=== PATIENT | male | born 1945 | race Asian ===

== ENCOUNTER 2017-07-27 12:15 | Inpatient (IN) | payer OTHER ==
[2017-07-27] MEDS: SODIUM CHLORIDE 0.9% 1L BAG IV* (12:37)
[2017-07-27] MEDS: PIPER-TAZO 3.375 GM IV (PMX) 50 ML IVPB (12:37)
[2017-07-27 13:13] LABS: ADD MAN DIFF? NO
[2017-07-27 13:15] LABS: ABNORMAL IP MESSAGE 1; BASOPHIL # 0.1 10^3/ul (0.0-0.1); BASOPHILS % 0.5 % (0.0-2.0); EOSINOPHILS # 0.4 10^3/ul (0.0-0.5); EOSINOPHILS % 1.8 % (0.0-7.0); HEMATOCRIT 33.9 % (42.0-52.0); LYMPHOCYTES # 2.1 10^3/ul (0.8-2.9); LYMPHOCYTES % 10.4 % (15.0-51.0); MEAN CORPUSCULAR HEMOGLOBIN 29.4 pg (29.0-33.0); MEAN CORPUSCULAR HGB CONC 32.4 g/dl (32.0-37.0); MEAN CORPUSCULAR VOLUME 90.6 fl (82.0-101.0); MEAN PLATELET VOLUME 11.4 fl (7.4-10.4); MONOCYTE # 1.5 10^3/ul (0.3-0.9); MONOCYTES % 7.4 % (0.0-11.0); NEUTROPHIL # 16.1 10^3/ul (1.6-7.5); NEUTROPHILS % 78.9 % (39.0-77.0); PLATELET COUNT 424 10^3/UL (140-415); POSITIVE DIFF @See below; RED BLOOD COUNT 3.74 10^6/ul (4.70-6.10); RED CELL DISTRIBUTION WIDTH 17.2 % (11.5-14.5)
[2017-07-27 13:15] LABS: WHITE BLOOD COUNT 20.5 10^3/ul (4.8-10.8)
[2017-07-27 13:49] LABS: INR 0.94; PROTIME 12.7 Sec (11.9-14.9)
[2017-07-27 13:50] LABS: PARTIAL THROMBOPLASTIN TIME 40.5 Sec (25.0-35.0)
[2017-07-27 14:10] LABS: LACTIC ACID 1.2 mmol/L (0.5-2.0)
[2017-07-27 14:11] LABS: ALANINE AMINOTRANSFERASE 26 IU/L (13-69); ALBUMIN 3.6 g/dl (3.3-4.9); ALKALINE PHOSPHATASE 264 IU/L (42-121); ANION GAP 18 (8-16); ASPARTATE AMINO TRANSFERASE 27 IU/L (15-46); BLOOD UREA NITROGEN 61 mg/dl (7-20); CALCIUM 10.4 mg/dl (8.4-10.2); CARBON DIOXIDE 24 mmol/L (21-31); CHLORIDE 94 mmol/L (97-110); CREATININE 4.07 mg/dl (0.61-1.24); GLUCOSE 130 mg/dl (70-220); POTASSIUM 3.9 mmol/L (3.5-5.1); SODIUM 132 mmol/L (135-144); TOTAL PROTEIN 8.7 g/dl (6.1-8.1)
[2017-07-27 14:23] LABS: TROPONIN-I 0.036 ng/ml (0.00-0.12)
[2017-07-27 15:28] LABS: ADD UMIC YES; UR ASCORBIC ACID 40 mg/dL (NEGATIVE); UR BACTERIA MANY /HPF (NONE SEEN); UR BILIRUBIN (Dip) NEGATIVE (NEGATIVE); UR BLOOD (Dip) 1+ mg/dL (NEGATIVE); UR CLARITY CLOUDY (CLEAR); UR COLOR AMBER (YELLOW); UR GLUCOSE (Dip) NEGATIVE (NEGATIVE); UR KETONES (Dip) NEGATIVE (NEGATIVE); UR LEUKOCYTE ESTERASE (Dip) 3+ Leu/ul (NEGATIVE); UR MUCUS FEW /HPF (NONE SEEN); UR NITRITE (Dip) NEGATIVE (NEGATIVE); UR RBC 21 /HPF (0-5); UR SPECIFIC GRAVITY (Dip) 1.013 (1.003-1.030); UR TOTAL PROTEIN (Dip) 3+ mg/dl (NEGATIVE); UR UROBILINOGEN (Dip) NEGATIVE (NEGATIVE); UR WBC > 182 /HPF (0-5)
[2017-07-27] MEDS: VANCOMYCIN 1 GM (PMX) 250 ML IVPB (15:45)
[2017-07-27 16:11] LABS: LACTIC ACID 0.7 mmol/L (0.5-2.0)
[2017-07-27] MEDS ORDERED: ACETAMINOPHEN 650MG/20.3ML CUP (17:01)
[2017-07-27] MEDS ORDERED: ONDANSETRON 4 MG INJ IV ×2 (17:30→20:00)
[2017-07-27] MEDS ORDERED: IBUPROFEN LIQUID (PED) 20 MG/ML CUP (18:06)
[2017-07-27 18:20] LABS: LACTIC ACID 1.5 mmol/L (0.5-2.0)
[2017-07-27] MEDS: ACETAMINOPHEN 325 MG TAB PO (19:32)
[2017-07-27] MEDS ORDERED: VANCOMYCIN IV PER PHARMACY XX (20:00)
[2017-07-27] MEDS ORDERED: NACL 0.9% 3 ML SYG IV (20:00)
[2017-07-27] MEDS ORDERED: GLUCOSE GEL 15 GRAM TUBE BUCCAL (20:30)
[2017-07-27] MEDS: ACETAMINOPHEN 650 MG SUPP PR (20:30)
[2017-07-27] MEDS ORDERED: GLUCAGON 1 MG INJ IM (20:30)
[2017-07-27] MEDS ORDERED: GLUCOSE GEL 15 GRAM TUBE PO ×2 (20:30)
[2017-07-27] MEDS ORDERED: DEXTROSE 50% 50 ML SYRINGE IV (20:30)
[2017-07-27] MEDS: CEFEPIME 1GM/50 ML (PMX) 50 ML IVPB (20:33)
[2017-07-27] MEDS: D5W-0.45 NACL + KCL 20 MEQ 1,000 ML IV (20:33)
[2017-07-27] MEDS ORDERED: FAMOTIDINE 20 MG TAB PO (21:00)
[2017-07-27] MEDS ORDERED: CEFEPIME 1GM/50 ML (PMX) 50 ML IVPB (21:00)
[2017-07-27] MEDS ORDERED: INSULIN REGULAR, HUMAN 100 UNIT/1 ML 3ML VIAL (21:24)
[2017-07-27] MEDS: Insulin NOVOLOG SS MILD Algorithm (NPO/TPN/ENTERAL FEEDS) SC (21:47)
[2017-07-27] MEDS: INSULIN GLARGINE [LANtus] 3 ML PEN SC (21:48)
[2017-07-27] MEDS: morphine 2 MG INJ IV (23:30)
[2017-07-27] MEDS: TAMSULOSIN (SR) 0.4 MG CAP PO (23:34)
[2017-07-27] MEDS: ZINC SULFATE 220 MG CAP GTB (23:34)
[2017-07-28] MEDS ORDERED: INSULIN ASPART [NOVOLOG] 3 ML PEN SC
[2017-07-28] MEDS: FAMOTIDINE 20 MG TAB PO ×2 (04:53→20:37)
[2017-07-28] MEDS: morphine 2 MG INJ IV (04:53)
[2017-07-28] MEDS: Insulin NOVOLOG SS MILD Algorithm (NPO/TPN/ENTERAL FEEDS) SC ×3 (05:49→19:34)
[2017-07-28 06:15] LABS: ADD MAN DIFF? NO
[2017-07-28 06:25] LABS: WHITE BLOOD COUNT 24.9 10^3/ul (4.8-10.8)
[2017-07-28 06:25] LABS: ABNORMAL IP MESSAGE 1; BASOPHIL # 0.2 10^3/ul (0.0-0.1); BASOPHILS % 0.6 % (0.0-2.0); EOSINOPHILS # 0.8 10^3/ul (0.0-0.5); EOSINOPHILS % 3.1 % (0.0-7.0); HEMATOCRIT 32.3 % (42.0-52.0); HEMOGLOBIN 10.5 g/dl (14.0-18.0); LYMPHOCYTES # 1.1 10^3/ul (0.8-2.9); LYMPHOCYTES % 4.4 % (15.0-51.0); MEAN CORPUSCULAR HEMOGLOBIN 29.6 pg (29.0-33.0); MEAN CORPUSCULAR HGB CONC 32.5 g/dl (32.0-37.0); MEAN PLATELET VOLUME 10.6 fl (7.4-10.4); MONOCYTE # 1.4 10^3/ul (0.3-0.9); MONOCYTES % 5.7 % (0.0-11.0); NEUTROPHIL # 21.2 10^3/ul (1.6-7.5); NEUTROPHILS % 85.2 % (39.0-77.0); PLATELET COUNT 436 10^3/UL (140-415); POSITIVE DIFF @See below; RED BLOOD COUNT 3.55 10^6/ul (4.70-6.10); RED CELL DISTRIBUTION WIDTH 17.2 % (11.5-14.5)
[2017-07-28 07:12] LABS: ALANINE AMINOTRANSFERASE 25 IU/L (13-69); ALBUMIN 3.1 g/dl (3.3-4.9); ALBUMIN/GLOBULIN RATIO 0.67; ALKALINE PHOSPHATASE 174 IU/L (42-121); ANION GAP 17 (8-16); ASPARTATE AMINO TRANSFERASE 25 IU/L (15-46); BLOOD UREA NITROGEN 63 mg/dl (7-20); CALCIUM 9.2 mg/dl (8.4-10.2); CARBON DIOXIDE 19 mmol/L (21-31); CHLORIDE 103 mmol/L (97-110); CREATININE 4.45 mg/dl (0.61-1.24); GLUCOSE 111 mg/dl (70-220); POTASSIUM 4.4 mmol/L (3.5-5.1); SODIUM 135 mmol/L (135-144); TOTAL PROTEIN 7.7 g/dl (6.1-8.1)
[2017-07-28 07:33] LABS: THYROID STIMULATING HORMONE 0.303 MIU/L (0.465-4.680)
[2017-07-28 08:02] LABS: HEMOGLOBIN A1C 5.7 % (0-5.9)
[2017-07-28] MEDS ORDERED: TAMSULOSIN (SR) 0.4 MG CAP PO (09:00)
[2017-07-28] MEDS: D5W-0.45 NACL + KCL 20 MEQ 1,000 ML IV (13:44)
[2017-07-28 19:14] LABS: AADO2 Arterial 44.4 mmHg (7.0-24.0); Allen Test ACCEPTAB; Arterial Base Excess -4.3 mmol/L (-3.0-3); Arterial Blood Gas Oxygen Sat 94.7 mmHG (95.0-98.0); Arterial COHb 0.1 % (0.0-3.0); Arterial Fraction of Oxyhgb 94.4 % (93.0-99.0); Arterial HCO3 19.3 mmol/L (22.0-26.0); Arterial MetHb 0.2 % (0.0-1.5); Arterial Total Hemglobin 11.3 g/dl (12.0-18.0); MODE ROOM AIR; Site Right Radial
[2017-07-28] MEDS: ACETAMINOPHEN 650 MG SUPP PR (20:37)
[2017-07-28] MEDS: CEFEPIME 1GM/50 ML (PMX) 50 ML IVPB (20:37)
[2017-07-28] MEDS: TAMSULOSIN (SR) 0.4 MG CAP PO (20:37)
[2017-07-29] MEDS: ALBUTEROL/IPRATROPIUM (NEB) 3 ML AMP HHN ×4 (01:09→20:43)
[2017-07-29] MEDS: Insulin NOVOLOG SS MILD Algorithm (NPO/TPN/ENTERAL FEEDS) SC ×4 (01:21→18:08)
[2017-07-29] MEDS: INSULIN GLARGINE [LANtus] 3 ML PEN SC (01:29)
[2017-07-29] MEDS: D5W-0.45 NACL + KCL 20 MEQ 1,000 ML IV (04:53)
[2017-07-29 05:38] LABS: ADD MAN DIFF? NO
[2017-07-29 05:43] LABS: BASOPHIL # 0.1 10^3/ul (0.0-0.1); BASOPHILS % 0.7 % (0.0-2.0); EOSINOPHILS # 0.7 10^3/ul (0.0-0.5); EOSINOPHILS % 3.4 % (0.0-7.0); HEMATOCRIT 28.9 % (42.0-52.0); HEMOGLOBIN 9.8 g/dl (14.0-18.0); LYMPHOCYTES # 1.4 10^3/ul (0.8-2.9); LYMPHOCYTES % 7.5 % (15.0-51.0); MEAN CORPUSCULAR HEMOGLOBIN 30.1 pg (29.0-33.0); MEAN CORPUSCULAR HGB CONC 33.9 g/dl (32.0-37.0); MEAN CORPUSCULAR VOLUME 88.7 fl (82.0-101.0); MONOCYTE # 0.9 10^3/ul (0.3-0.9); MONOCYTES % 4.9 % (0.0-11.0); NEUTROPHIL # 15.7 10^3/ul (1.6-7.5); NEUTROPHILS % 82.8 % (39.0-77.0); PLATELET COUNT 461 10^3/UL (140-415); RED BLOOD COUNT 3.26 10^6/ul (4.70-6.10); RED CELL DISTRIBUTION WIDTH 17.2 % (11.5-14.5)
[2017-07-29 06:12] LABS: VANCOMYCIN,RANDOM 12.9 ug/ml
[2017-07-29 06:20] LABS: ANION GAP 18 (8-16); BLOOD UREA NITROGEN 73 mg/dl (7-20); CALCIUM 8.6 mg/dl (8.4-10.2); CARBON DIOXIDE 18 mmol/L (21-31); CHLORIDE 102 mmol/L (97-110); CREATININE 5.08 mg/dl (0.61-1.24); GLUCOSE 207 mg/dl (70-220); MAGNESIUM 2.2 mg/dl (1.7-2.5); POTASSIUM 4.5 mmol/L (3.5-5.1); SODIUM 133 mmol/L (135-144)
[2017-07-29] MEDS: ZINC SULFATE 220 MG CAP GTB (08:52)
[2017-07-29] MEDS: VANCOMYCIN 750 MG in DEXTROSE 5% 150 ML IVPB (14:10)
[2017-07-29] MEDS: TAMSULOSIN (SR) 0.4 MG CAP PO (20:50)
[2017-07-29] MEDS: CEFEPIME 1GM/50 ML (PMX) 50 ML IVPB (20:51)
[2017-07-29] MEDS: FAMOTIDINE 20 MG TAB PO (20:51)
[2017-07-30] MEDS: INSULIN GLARGINE [LANtus] 3 ML PEN SC ×2 (00:52→20:46)
[2017-07-30] MEDS: ALBUTEROL/IPRATROPIUM (NEB) 3 ML AMP HHN ×4 (02:29→20:14)
[2017-07-30] MEDS: Insulin NOVOLOG SS MILD Algorithm (NPO/TPN/ENTERAL FEEDS) SC ×4 (05:57→17:37)
[2017-07-30 06:37] LABS: ADD MAN DIFF? NO
[2017-07-30 06:44] LABS: BASOPHIL # 0.1 10^3/ul (0.0-0.1); BASOPHILS % 0.6 % (0.0-2.0); EOSINOPHILS # 0.5 10^3/ul (0.0-0.5); EOSINOPHILS % 3.1 % (0.0-7.0); HEMATOCRIT 29.7 % (42.0-52.0); LYMPHOCYTES # 1.5 10^3/ul (0.8-2.9); LYMPHOCYTES % 10.6 % (15.0-51.0); MEAN CORPUSCULAR HEMOGLOBIN 29.9 pg (29.0-33.0); MEAN CORPUSCULAR HGB CONC 33.7 g/dl (32.0-37.0); MEAN CORPUSCULAR VOLUME 88.9 fl (82.0-101.0); MEAN PLATELET VOLUME 10.8 fl (7.4-10.4); MONOCYTES % 6.8 % (0.0-11.0); NEUTROPHIL # 11.3 10^3/ul (1.6-7.5); NEUTROPHILS % 78.2 % (39.0-77.0); PLATELET COUNT 397 10^3/UL (140-415); RED BLOOD COUNT 3.34 10^6/ul (4.70-6.10); RED CELL DISTRIBUTION WIDTH 17.5 % (11.5-14.5)
[2017-07-30 06:44] LABS: WHITE BLOOD COUNT 14.5 10^3/ul (4.8-10.8)
[2017-07-30 07:10] LABS: ALANINE AMINOTRANSFERASE 25 IU/L (13-69); ALBUMIN 2.9 g/dl (3.3-4.9); ALBUMIN/GLOBULIN RATIO 0.67; ALKALINE PHOSPHATASE 257 IU/L (42-121); ANION GAP 13 (8-16); ASPARTATE AMINO TRANSFERASE 29 IU/L (15-46); BLOOD UREA NITROGEN 50 mg/dl (7-20); CALCIUM 8.4 mg/dl (8.4-10.2); CARBON DIOXIDE 25 mmol/L (21-31); CHLORIDE 98 mmol/L (97-110); CREATININE 3.53 mg/dl (0.61-1.24); GLUCOSE 203 mg/dl (70-220); SODIUM 133 mmol/L (135-144); TOTAL PROTEIN 7.2 g/dl (6.1-8.1)
[2017-07-30] MEDS: ZINC SULFATE 220 MG CAP GTB (09:29)
[2017-07-30] MEDS: BALSAM PERU/CASTOR OIL 60 GM TUBE TOP ×2 (09:30→14:54)
[2017-07-30] MEDS ORDERED: POTASSIUM CHLORIDE 30 MEQ in DEXTROSE 5% 250 ML IVPB (15:30)
[2017-07-30] MEDS: POTASSIUM CHLORIDE 50 ML IVPB ×3 (16:01→20:37)
[2017-07-30] MEDS ORDERED: HEPARIN 1000 UNITS/ML 10 ML INJ (17:42)
[2017-07-30] MEDS: CEFEPIME 1GM/50 ML (PMX) 50 ML IVPB (20:36)
[2017-07-30] MEDS: FAMOTIDINE 20 MG TAB PO (20:38)
[2017-07-30] MEDS: TAMSULOSIN (SR) 0.4 MG CAP PO (20:38)
[2017-07-31] MEDS: Insulin NOVOLOG SS MILD Algorithm (NPO/TPN/ENTERAL FEEDS) SC ×5 (00:59→23:41)
[2017-07-31] MEDS: ALBUTEROL/IPRATROPIUM (NEB) 3 ML AMP HHN ×4 (01:34→19:21)
[2017-07-31 07:21] LABS: ADD MAN DIFF? NO
[2017-07-31 07:24] LABS: BASOPHIL # 0.1 10^3/ul (0.0-0.1); BASOPHILS % 0.6 % (0.0-2.0); EOSINOPHILS % 6.1 % (0.0-7.0); HEMATOCRIT 32.5 % (42.0-52.0); HEMOGLOBIN 10.7 g/dl (14.0-18.0); LYMPHOCYTES # 1.6 10^3/ul (0.8-2.9); LYMPHOCYTES % 10.2 % (15.0-51.0); MEAN CORPUSCULAR HEMOGLOBIN 29.6 pg (29.0-33.0); MEAN CORPUSCULAR HGB CONC 32.9 g/dl (32.0-37.0); MEAN PLATELET VOLUME 11.2 fl (7.4-10.4); MONOCYTE # 0.9 10^3/ul (0.3-0.9); MONOCYTES % 5.9 % (0.0-11.0); NEUTROPHIL # 11.9 10^3/ul (1.6-7.5); NEUTROPHILS % 76.4 % (39.0-77.0); PLATELET COUNT 393 10^3/UL (140-415); RED BLOOD COUNT 3.61 10^6/ul (4.70-6.10); RED CELL DISTRIBUTION WIDTH 17.7 % (11.5-14.5)
[2017-07-31 07:24] LABS: WHITE BLOOD COUNT 15.5 10^3/ul (4.8-10.8)
[2017-07-31 07:39] LABS: ANION GAP 16 (8-16); BLOOD UREA NITROGEN 73 mg/dl (7-20); CARBON DIOXIDE 23 mmol/L (21-31); CHLORIDE 100 mmol/L (97-110); GLUCOSE 158 mg/dl (70-220); POTASSIUM 3.8 mmol/L (3.5-5.1); SODIUM 135 mmol/L (135-144)
[2017-07-31] MEDS: ZINC SULFATE 220 MG CAP GTB (08:21)
[2017-07-31] MEDS: BALSAM PERU/CASTOR OIL 60 GM TUBE TOP (08:22)
[2017-07-31] MEDS: FAMOTIDINE 20 MG TAB PO (21:28)
[2017-07-31] MEDS: TAMSULOSIN (SR) 0.4 MG CAP PO (21:28)
[2017-07-31] MEDS: CEFEPIME 1GM/50 ML (PMX) 50 ML IVPB (21:29)
[2017-07-31] MEDS: INSULIN GLARGINE [LANtus] 3 ML PEN SC (21:37)
[2017-08-01] MEDS: ALBUTEROL/IPRATROPIUM (NEB) 3 ML AMP HHN ×4 (01:13→22:06)
[2017-08-01] MEDS: morphine 2 MG INJ IV (02:39)
[2017-08-01] MEDS: Insulin NOVOLOG SS MILD Algorithm (NPO/TPN/ENTERAL FEEDS) SC ×3 (06:00→18:02)
[2017-08-01 07:25] LABS: ADD MAN DIFF? NO
[2017-08-01 07:31] LABS: BASOPHIL # 0.1 10^3/ul (0.0-0.1); BASOPHILS % 0.6 % (0.0-2.0); EOSINOPHILS % 6.3 % (0.0-7.0); HEMOGLOBIN 10.5 g/dl (14.0-18.0); LYMPHOCYTES # 1.8 10^3/ul (0.8-2.9); LYMPHOCYTES % 11.6 % (15.0-51.0); MEAN CORPUSCULAR HEMOGLOBIN 29.5 pg (29.0-33.0); MEAN CORPUSCULAR HGB CONC 32.8 g/dl (32.0-37.0); MEAN CORPUSCULAR VOLUME 89.9 fl (82.0-101.0); MEAN PLATELET VOLUME 11.3 fl (7.4-10.4); MONOCYTES % 6.1 % (0.0-11.0); NEUTROPHIL # 11.7 10^3/ul (1.6-7.5); NEUTROPHILS % 74.8 % (39.0-77.0); PLATELET COUNT 424 10^3/UL (140-415); RED BLOOD COUNT 3.56 10^6/ul (4.70-6.10); RED CELL DISTRIBUTION WIDTH 17.6 % (11.5-14.5)
[2017-08-01 07:31] LABS: WHITE BLOOD COUNT 15.7 10^3/ul (4.8-10.8)
[2017-08-01 07:59] LABS: ANION GAP 12 (8-16); BLOOD UREA NITROGEN 45 mg/dl (7-20); CALCIUM 8.5 mg/dl (8.4-10.2); CARBON DIOXIDE 31 mmol/L (21-31); CHLORIDE 99 mmol/L (97-110); CREATININE 3.17 mg/dl (0.61-1.24); GLUCOSE 131 mg/dl (70-220); POTASSIUM 3.5 mmol/L (3.5-5.1); SODIUM 138 mmol/L (135-144)
[2017-08-01] MEDS: ZINC SULFATE 220 MG CAP GTB (09:05)
[2017-08-01] MEDS: BALSAM PERU/CASTOR OIL 60 GM TUBE TOP (09:06)
[2017-08-01] MEDS: FAMOTIDINE 20 MG TAB PO (20:38)
[2017-08-01] MEDS: TAMSULOSIN (SR) 0.4 MG CAP PO (20:39)
[2017-08-01] MEDS: CEFEPIME 1GM/50 ML (PMX) 50 ML IVPB (21:34)
[2017-08-01] MEDS: DEXTROSE 50% 50 ML SYRINGE IV (21:41)
[2017-08-02] MEDS: Insulin NOVOLOG SS MILD Algorithm (NPO/TPN/ENTERAL FEEDS) SC ×4 (00:35→18:03)
[2017-08-02] MEDS: ALBUTEROL/IPRATROPIUM (NEB) 3 ML AMP HHN ×4 (02:23→20:37)
[2017-08-02 06:12] LABS: ADD MAN DIFF? NO
[2017-08-02 06:19] LABS: WHITE BLOOD COUNT 15.2 10^3/ul (4.8-10.8)
[2017-08-02 06:19] LABS: BASOPHIL # 0.1 10^3/ul (0.0-0.1); BASOPHILS % 0.8 % (0.0-2.0); EOSINOPHILS # 1.1 10^3/ul (0.0-0.5); HEMATOCRIT 31.2 % (42.0-52.0); HEMOGLOBIN 10.3 g/dl (14.0-18.0); LYMPHOCYTES # 1.9 10^3/ul (0.8-2.9); LYMPHOCYTES % 12.5 % (15.0-51.0); MEAN CORPUSCULAR HEMOGLOBIN 29.9 pg (29.0-33.0); MEAN CORPUSCULAR VOLUME 90.4 fl (82.0-101.0); MEAN PLATELET VOLUME 11.7 fl (7.4-10.4); MONOCYTES % 6.6 % (0.0-11.0); NEUTROPHILS % 72.2 % (39.0-77.0); PLATELET COUNT 435 10^3/UL (140-415); RED BLOOD COUNT 3.45 10^6/ul (4.70-6.10); RED CELL DISTRIBUTION WIDTH 17.6 % (11.5-14.5)
[2017-08-02 07:02] LABS: ANION GAP 16 (8-16); BLOOD UREA NITROGEN 61 mg/dl (7-20); CALCIUM 7.8 mg/dl (8.4-10.2); CARBON DIOXIDE 27 mmol/L (21-31); CHLORIDE 99 mmol/L (97-110); CREATININE 3.79 mg/dl (0.61-1.24); GLUCOSE 175 mg/dl (70-220); POTASSIUM 3.6 mmol/L (3.5-5.1); SODIUM 138 mmol/L (135-144)
[2017-08-02] MEDS: ZINC SULFATE 220 MG CAP GTB (08:51)
[2017-08-02] MEDS: BALSAM PERU/CASTOR OIL 60 GM TUBE TOP (08:51)
[2017-08-02] MEDS: INSULIN GLARGINE [LANtus] 3 ML PEN SC (20:46)
[2017-08-02] MEDS: FAMOTIDINE 20 MG TAB PO (20:47)
[2017-08-02] MEDS: CEFEPIME 1GM/50 ML (PMX) 50 ML IVPB (20:48)
[2017-08-02] MEDS: TAMSULOSIN (SR) 0.4 MG CAP PO (20:49)
[2017-08-03] MEDS: Insulin NOVOLOG SS MILD Algorithm (NPO/TPN/ENTERAL FEEDS) SC ×4 (00:21→18:06)
[2017-08-03] MEDS: morphine 2 MG INJ IV ×2 (00:29→20:45)
[2017-08-03] MEDS: ALBUTEROL/IPRATROPIUM (NEB) 3 ML AMP HHN ×4 (01:43→20:02)
[2017-08-03 05:26] LABS: ADD MAN DIFF? NO
[2017-08-03 05:29] LABS: WHITE BLOOD COUNT 15.1 10^3/ul (4.8-10.8)
[2017-08-03 05:29] LABS: BASOPHIL # 0.1 10^3/ul (0.0-0.1); BASOPHILS % 0.9 % (0.0-2.0); EOSINOPHILS # 0.9 10^3/ul (0.0-0.5); EOSINOPHILS % 5.9 % (0.0-7.0); HEMATOCRIT 32.4 % (42.0-52.0); HEMOGLOBIN 10.6 g/dl (14.0-18.0); LYMPHOCYTES # 1.8 10^3/ul (0.8-2.9); LYMPHOCYTES % 11.7 % (15.0-51.0); MEAN CORPUSCULAR HEMOGLOBIN 29.9 pg (29.0-33.0); MEAN CORPUSCULAR HGB CONC 32.7 g/dl (32.0-37.0); MEAN CORPUSCULAR VOLUME 91.3 fl (82.0-101.0); MEAN PLATELET VOLUME 11.4 fl (7.4-10.4); MONOCYTES % 6.5 % (0.0-11.0); NEUTROPHIL # 11.2 10^3/ul (1.6-7.5); NEUTROPHILS % 74.1 % (39.0-77.0); PLATELET COUNT 453 10^3/UL (140-415); RED BLOOD COUNT 3.55 10^6/ul (4.70-6.10); RED CELL DISTRIBUTION WIDTH 17.6 % (11.5-14.5)
[2017-08-03 06:18] LABS: HEPATITIS B SURFACE ANTIGEN NEGATIVE (NEGATIVE)
[2017-08-03 06:34] LABS: HEPATITIS B SURFACE ANTIBODY NEGATIVE (NEGATIVE)
[2017-08-03 06:36] LABS: HEPATITIS B CORE ANTIBODY NEGATIVE (NEGATIVE)
[2017-08-03 06:43] LABS: ANION GAP 14 (8-16); BLOOD UREA NITROGEN 34 mg/dl (7-20); CALCIUM 8.1 mg/dl (8.4-10.2); CARBON DIOXIDE 27 mmol/L (21-31); CHLORIDE 101 mmol/L (97-110); CREATININE 2.47 mg/dl (0.61-1.24); GLUCOSE 155 mg/dl (70-220); POTASSIUM 3.7 mmol/L (3.5-5.1); SODIUM 138 mmol/L (135-144)
[2017-08-03] MEDS: ZINC SULFATE 220 MG CAP GTB (09:19)
[2017-08-03] MEDS: BALSAM PERU/CASTOR OIL 60 GM TUBE TOP (09:19)
[2017-08-03] MEDS: INSULIN GLARGINE [LANtus] 3 ML PEN SC (20:37)
[2017-08-03] MEDS: CEFEPIME 1GM/50 ML (PMX) 50 ML IVPB (20:39)
[2017-08-03] MEDS: FAMOTIDINE 20 MG TAB PO (20:40)
[2017-08-03] MEDS: TAMSULOSIN (SR) 0.4 MG CAP PO (20:41)
[2017-08-04] MEDS: ALBUTEROL/IPRATROPIUM (NEB) 3 ML AMP HHN ×4 (01:27→19:25)
[2017-08-04] MEDS: Insulin NOVOLOG SS MILD Algorithm (NPO/TPN/ENTERAL FEEDS) SC ×5 (06:00→23:52)
[2017-08-04 06:14] LABS: ADD MAN DIFF? NO
[2017-08-04 06:23] LABS: WHITE BLOOD COUNT 15.6 10^3/ul (4.8-10.8)
[2017-08-04 06:23] LABS: BASOPHIL # 0.1 10^3/ul (0.0-0.1); BASOPHILS % 0.8 % (0.0-2.0); EOSINOPHILS # 1.2 10^3/ul (0.0-0.5); EOSINOPHILS % 7.4 % (0.0-7.0); HEMATOCRIT 33.4 % (42.0-52.0); HEMOGLOBIN 10.7 g/dl (14.0-18.0); LYMPHOCYTES # 2.2 10^3/ul (0.8-2.9); LYMPHOCYTES % 14.3 % (15.0-51.0); MEAN CORPUSCULAR HEMOGLOBIN 29.6 pg (29.0-33.0); MEAN CORPUSCULAR VOLUME 92.3 fl (82.0-101.0); MEAN PLATELET VOLUME 11.5 fl (7.4-10.4); MONOCYTE # 1.3 10^3/ul (0.3-0.9); MONOCYTES % 8.3 % (0.0-11.0); NEUTROPHIL # 10.6 10^3/ul (1.6-7.5); NEUTROPHILS % 68.1 % (39.0-77.0); PLATELET COUNT 488 10^3/UL (140-415); RED BLOOD COUNT 3.62 10^6/ul (4.70-6.10); RED CELL DISTRIBUTION WIDTH 17.5 % (11.5-14.5)
[2017-08-04 06:56] LABS: ANION GAP 15 (8-16); BLOOD UREA NITROGEN 59 mg/dl (7-20); CALCIUM 8.5 mg/dl (8.4-10.2); CARBON DIOXIDE 28 mmol/L (21-31); CHLORIDE 99 mmol/L (97-110); CREATININE 3.83 mg/dl (0.61-1.24); GLUCOSE 94 mg/dl (70-220); POTASSIUM 3.7 mmol/L (3.5-5.1); SODIUM 138 mmol/L (135-144)
[2017-08-04] MEDS: BALSAM PERU/CASTOR OIL 60 GM TUBE TOP (07:57)
[2017-08-04] MEDS: ZINC SULFATE 220 MG CAP GTB (07:57)
[2017-08-04] MEDS: ALBUMIN HUMAN 25% 100 ML IV (11:54)
[2017-08-04] MEDS: HEPARIN 1000 UNITS/ML 10 ML INJ CATHETER (12:43)
[2017-08-04] MEDS ORDERED: LIDOCAINE 1% (MDV) 20 ML INJ (16:14)
[2017-08-04] MEDS ORDERED: SOD CHLORIDE 0.9% 1,000 ML IV (18:57)
[2017-08-04] MEDS: FAMOTIDINE 20 MG TAB PO (20:32)
[2017-08-04] MEDS: CEFEPIME 1GM/50 ML (PMX) 50 ML IVPB (20:32)
[2017-08-04] MEDS: TAMSULOSIN (SR) 0.4 MG CAP PO (20:32)
[2017-08-04] MEDS: INSULIN GLARGINE [LANtus] 3 ML PEN SC (20:46)
[2017-08-05] MEDS: ALBUTEROL/IPRATROPIUM (NEB) 3 ML AMP HHN ×4 (01:02→20:12)
[2017-08-05] MEDS: Insulin NOVOLOG SS MILD Algorithm (NPO/TPN/ENTERAL FEEDS) SC ×3 (05:36→17:51)
[2017-08-05] MEDS: BALSAM PERU/CASTOR OIL 60 GM TUBE TOP (09:00)
[2017-08-05] MEDS: ZINC SULFATE 220 MG CAP GTB (09:11)
[2017-08-05] MEDS: CEFTRIAXONE 1 GM/50 ML (PMX) 50 ML IVPB (14:43)
[2017-08-05] MEDS: TAMSULOSIN (SR) 0.4 MG CAP PO (20:48)
[2017-08-05] MEDS: FAMOTIDINE 20 MG TAB PO (20:49)
[2017-08-05] MEDS: INSULIN GLARGINE [LANtus] 3 ML PEN SC (20:56)
[2017-08-06] MEDS: Insulin NOVOLOG SS MILD Algorithm (NPO/TPN/ENTERAL FEEDS) SC ×4 (00:26→18:01)
[2017-08-06] MEDS: ALBUTEROL/IPRATROPIUM (NEB) 3 ML AMP HHN ×4 (02:13→20:09)
[2017-08-06 06:46] LABS: ADD MAN DIFF? NO
[2017-08-06 06:50] LABS: BASOPHIL # 0.2 10^3/ul (0.0-0.1); BASOPHILS % 1.1 % (0.0-2.0); EOSINOPHILS % 7.3 % (0.0-7.0); HEMATOCRIT 32.1 % (42.0-52.0); HEMOGLOBIN 10.3 g/dl (14.0-18.0); LYMPHOCYTES # 2.4 10^3/ul (0.8-2.9); LYMPHOCYTES % 17.8 % (15.0-51.0); MEAN CORPUSCULAR HEMOGLOBIN 29.9 pg (29.0-33.0); MEAN CORPUSCULAR HGB CONC 32.1 g/dl (32.0-37.0); MEAN CORPUSCULAR VOLUME 93.3 fl (82.0-101.0); MEAN PLATELET VOLUME 11.3 fl (7.4-10.4); MONOCYTE # 1.2 10^3/ul (0.3-0.9); MONOCYTES % 9.1 % (0.0-11.0); NEUTROPHIL # 8.5 10^3/ul (1.6-7.5); NEUTROPHILS % 63.9 % (39.0-77.0); PLATELET COUNT 478 10^3/UL (140-415); RED BLOOD COUNT 3.44 10^6/ul (4.70-6.10); RED CELL DISTRIBUTION WIDTH 17.8 % (11.5-14.5)
[2017-08-06 06:50] LABS: WHITE BLOOD COUNT 13.4 10^3/ul (4.8-10.8)
[2017-08-06 07:29] LABS: ANION GAP 17 (8-16); BLOOD UREA NITROGEN 69 mg/dl (7-20); CALCIUM 9.4 mg/dl (8.4-10.2); CARBON DIOXIDE 27 mmol/L (21-31); CHLORIDE 100 mmol/L (97-110); GLUCOSE 192 mg/dl (70-220); POTASSIUM 3.7 mmol/L (3.5-5.1); SODIUM 140 mmol/L (135-144)
[2017-08-06] MEDS: ZINC SULFATE 220 MG CAP GTB (08:58)
[2017-08-06] MEDS: BALSAM PERU/CASTOR OIL 60 GM TUBE TOP ×2 (10:44→21:25)
[2017-08-06] MEDS: HEPARIN 1000 UNITS/ML 10 ML INJ CATHETER (17:18)
[2017-08-06] MEDS: CEFTRIAXONE 1 GM/50 ML (PMX) 50 ML IVPB (17:53)
[2017-08-06] MEDS: TAMSULOSIN (SR) 0.4 MG CAP PO (21:24)
[2017-08-06] MEDS: FAMOTIDINE 20 MG TAB PO (21:24)
[2017-08-06] MEDS: INSULIN GLARGINE [LANtus] 3 ML PEN SC (21:29)
[2017-08-07] MEDS: Insulin NOVOLOG SS MILD Algorithm (NPO/TPN/ENTERAL FEEDS) SC ×4 (00:33→18:28)
[2017-08-07] MEDS: ALBUTEROL/IPRATROPIUM (NEB) 3 ML AMP HHN ×4 (02:38→19:48)
[2017-08-07 06:22] LABS: ADD MAN DIFF? NO
[2017-08-07] MEDS: DOCUSATE SODIUM 100 MG CAP PO (06:25)
[2017-08-07 06:34] LABS: WHITE BLOOD COUNT 11.4 10^3/ul (4.8-10.8)
[2017-08-07 06:34] LABS: BASOPHIL # 0.1 10^3/ul (0.0-0.1); BASOPHILS % 1.1 % (0.0-2.0); EOSINOPHILS # 0.8 10^3/ul (0.0-0.5); EOSINOPHILS % 6.7 % (0.0-7.0); HEMATOCRIT 32.9 % (42.0-52.0); HEMOGLOBIN 10.9 g/dl (14.0-18.0); LYMPHOCYTES # 1.8 10^3/ul (0.8-2.9); LYMPHOCYTES % 15.8 % (15.0-51.0); MEAN CORPUSCULAR HEMOGLOBIN 30.8 pg (29.0-33.0); MEAN CORPUSCULAR HGB CONC 33.1 g/dl (32.0-37.0); MEAN CORPUSCULAR VOLUME 92.9 fl (82.0-101.0); MEAN PLATELET VOLUME 11.7 fl (7.4-10.4); MONOCYTE # 1.1 10^3/ul (0.3-0.9); MONOCYTES % 9.3 % (0.0-11.0); NEUTROPHIL # 7.5 10^3/ul (1.6-7.5); NEUTROPHILS % 66.1 % (39.0-77.0); PLATELET COUNT 414 10^3/UL (140-415); RED BLOOD COUNT 3.54 10^6/ul (4.70-6.10); RED CELL DISTRIBUTION WIDTH 17.9 % (11.5-14.5)
[2017-08-07 07:03] LABS: ANION GAP 15 (8-16); BLOOD UREA NITROGEN 47 mg/dl (7-20); CALCIUM 9.5 mg/dl (8.4-10.2); CARBON DIOXIDE 28 mmol/L (21-31); CHLORIDE 99 mmol/L (97-110); CREATININE 3.21 mg/dl (0.61-1.24); GLUCOSE 170 mg/dl (70-220); POTASSIUM 3.5 mmol/L (3.5-5.1); SODIUM 138 mmol/L (135-144)
[2017-08-07] MEDS: ZINC SULFATE 220 MG CAP GTB (09:16)
[2017-08-07] MEDS: BALSAM PERU/CASTOR OIL 60 GM TUBE TOP ×2 (09:19→21:01)
[2017-08-07] MEDS: CEFTRIAXONE 1 GM/50 ML (PMX) 50 ML IVPB (14:47)
[2017-08-07] MEDS: FAMOTIDINE 20 MG TAB PO (20:57)
[2017-08-07] MEDS: TAMSULOSIN (SR) 0.4 MG CAP PO (20:59)
[2017-08-07] MEDS: INSULIN GLARGINE [LANtus] 3 ML PEN SC (21:04)
[2017-08-08] MEDS: Insulin NOVOLOG SS MILD Algorithm (NPO/TPN/ENTERAL FEEDS) SC ×4 (00:59→17:36)
[2017-08-08] MEDS: DOCUSATE SODIUM 10 MG/ML (10ML CUP) GTB (01:00)
[2017-08-08] MEDS: ALBUTEROL/IPRATROPIUM (NEB) 3 ML AMP HHN ×4 (02:18→19:04)
[2017-08-08] MEDS: ZINC SULFATE 220 MG CAP GTB (08:58)
[2017-08-08] MEDS: BALSAM PERU/CASTOR OIL 60 GM TUBE TOP ×2 (09:00→20:26)
[2017-08-08] MEDS ORDERED: VITAMIN A & D 5 GM OINT PACKET TOP (11:59)
[2017-08-08] MEDS: CEFTRIAXONE 1 GM/50 ML (PMX) 50 ML IVPB (14:12)
[2017-08-08] MEDS: FAMOTIDINE 20 MG TAB PO (20:24)
[2017-08-08] MEDS: TAMSULOSIN (SR) 0.4 MG CAP PO (20:24)
[2017-08-08] MEDS: INSULIN GLARGINE [LANtus] 3 ML PEN SC (20:27)
[2017-08-09] MEDS: Insulin NOVOLOG SS MILD Algorithm (NPO/TPN/ENTERAL FEEDS) SC ×4 (00:05→17:26)
[2017-08-09] MEDS: ALBUTEROL/IPRATROPIUM (NEB) 3 ML AMP HHN ×4 (01:39→22:33)
[2017-08-09] MEDS: ZINC SULFATE 220 MG CAP GTB (09:21)
[2017-08-09] MEDS: BALSAM PERU/CASTOR OIL 60 GM TUBE TOP ×2 (09:22→20:42)
[2017-08-09] MEDS: CEFTRIAXONE 1 GM/50 ML (PMX) 50 ML IVPB (17:01)
[2017-08-09] MEDS: TAMSULOSIN (SR) 0.4 MG CAP PO (20:41)
[2017-08-09] MEDS: FAMOTIDINE 20 MG TAB PO (20:42)
[2017-08-09] MEDS: INSULIN GLARGINE [LANtus] 3 ML PEN SC (20:55)
[2017-08-10] MEDS: Insulin NOVOLOG SS MILD Algorithm (NPO/TPN/ENTERAL FEEDS) SC ×5 (00:10→23:49)
[2017-08-10] MEDS: ALBUTEROL/IPRATROPIUM (NEB) 3 ML AMP HHN ×4 (02:59→20:05)
[2017-08-10 06:30] LABS: ALANINE AMINOTRANSFERASE 53 IU/L (13-69); ALBUMIN 3.5 g/dl (3.3-4.9); ALBUMIN/GLOBULIN RATIO 0.76; ALKALINE PHOSPHATASE 287 IU/L (42-121); ANION GAP 15 (8-16); ASPARTATE AMINO TRANSFERASE 42 IU/L (15-46); BLOOD UREA NITROGEN 50 mg/dl (7-20); CALCIUM 9.1 mg/dl (8.4-10.2); CARBON DIOXIDE 28 mmol/L (21-31); CHLORIDE 97 mmol/L (97-110); CREATININE 3.38 mg/dl (0.61-1.24); GLUCOSE 151 mg/dl (70-220); POTASSIUM 3.8 mmol/L (3.5-5.1); SODIUM 136 mmol/L (135-144); TOTAL PROTEIN 8.1 g/dl (6.1-8.1)
[2017-08-10] MEDS: ZINC SULFATE 220 MG CAP GTB (10:05)
[2017-08-10] MEDS: BALSAM PERU/CASTOR OIL 60 GM TUBE TOP ×2 (10:06→20:33)
[2017-08-10] MEDS: CEFTRIAXONE 1 GM/50 ML (PMX) 50 ML IVPB (13:51)
[2017-08-10] MEDS: FAMOTIDINE 20 MG TAB PO (20:27)
[2017-08-10] MEDS: TAMSULOSIN (SR) 0.4 MG CAP PO (20:28)
[2017-08-10] MEDS: INSULIN GLARGINE [LANtus] 3 ML PEN SC (20:32)
[2017-08-11] MEDS: ALBUTEROL/IPRATROPIUM (NEB) 3 ML AMP HHN ×4 (01:50→20:50)
[2017-08-11] MEDS: Insulin NOVOLOG SS MILD Algorithm (NPO/TPN/ENTERAL FEEDS) SC ×4 (06:00→23:28)
[2017-08-11 06:44] LABS: ADD MAN DIFF? NO
[2017-08-11 06:51] LABS: BASOPHIL # 0.2 10^3/ul (0.0-0.1); BASOPHILS % 1.1 % (0.0-2.0); EOSINOPHILS # 1.2 10^3/ul (0.0-0.5); EOSINOPHILS % 8.3 % (0.0-7.0); HEMATOCRIT 31.9 % (42.0-52.0); HEMOGLOBIN 10.6 g/dl (14.0-18.0); LYMPHOCYTES # 2.4 10^3/ul (0.8-2.9); LYMPHOCYTES % 17.2 % (15.0-51.0); MEAN CORPUSCULAR HEMOGLOBIN 30.3 pg (29.0-33.0); MEAN CORPUSCULAR HGB CONC 33.2 g/dl (32.0-37.0); MEAN CORPUSCULAR VOLUME 91.1 fl (82.0-101.0); MEAN PLATELET VOLUME 11.6 fl (7.4-10.4); MONOCYTE # 1.4 10^3/ul (0.3-0.9); MONOCYTES % 10.1 % (0.0-11.0); NEUTROPHIL # 8.8 10^3/ul (1.6-7.5); NEUTROPHILS % 62.8 % (39.0-77.0); PLATELET COUNT 371 10^3/UL (140-415); RED CELL DISTRIBUTION WIDTH 17.3 % (11.5-14.5)
[2017-08-11 07:08] LABS: ANION GAP 18 (8-16); BLOOD UREA NITROGEN 76 mg/dl (7-20); CALCIUM 9.2 mg/dl (8.4-10.2); CARBON DIOXIDE 25 mmol/L (21-31); CHLORIDE 97 mmol/L (97-110); GLUCOSE 92 mg/dl (70-220); POTASSIUM 4.1 mmol/L (3.5-5.1); SODIUM 136 mmol/L (135-144)
[2017-08-11] MEDS: ZINC SULFATE 220 MG CAP GTB (09:33)
[2017-08-11] MEDS: BALSAM PERU/CASTOR OIL 60 GM TUBE TOP ×2 (09:33→20:40)
[2017-08-11] MEDS: CEFTRIAXONE 1 GM/50 ML (PMX) 50 ML IVPB (14:57)
[2017-08-11] MEDS ORDERED: VITAMIN A & D 5 GM OINT PACKET TOP (19:12)
[2017-08-11] MEDS: INSULIN GLARGINE [LANtus] 3 ML PEN SC (20:33)
[2017-08-11] MEDS: TAMSULOSIN (SR) 0.4 MG CAP PO (20:39)
[2017-08-11] MEDS: FAMOTIDINE 20 MG TAB PO (20:39)
[2017-08-12] MEDS: ALBUTEROL/IPRATROPIUM (NEB) 3 ML AMP HHN ×4 (01:47→20:49)
[2017-08-12] MEDS: Insulin NOVOLOG SS MILD Algorithm (NPO/TPN/ENTERAL FEEDS) SC ×3 (06:00→18:09)
[2017-08-12 06:23] LABS: ADD MAN DIFF? NO
[2017-08-12 06:35] LABS: BASOPHIL # 0.1 10^3/ul (0.0-0.1); EOSINOPHILS # 1.2 10^3/ul (0.0-0.5); EOSINOPHILS % 8.4 % (0.0-7.0); HEMATOCRIT 31.4 % (42.0-52.0); HEMOGLOBIN 10.6 g/dl (14.0-18.0); LYMPHOCYTES # 2.4 10^3/ul (0.8-2.9); LYMPHOCYTES % 17.3 % (15.0-51.0); MEAN CORPUSCULAR HEMOGLOBIN 30.5 pg (29.0-33.0); MEAN CORPUSCULAR HGB CONC 33.8 g/dl (32.0-37.0); MEAN CORPUSCULAR VOLUME 90.2 fl (82.0-101.0); MONOCYTE # 1.3 10^3/ul (0.3-0.9); MONOCYTES % 9.6 % (0.0-11.0); NEUTROPHIL # 8.7 10^3/ul (1.6-7.5); NEUTROPHILS % 63.3 % (39.0-77.0); PLATELET COUNT 354 10^3/UL (140-415); RED BLOOD COUNT 3.48 10^6/ul (4.70-6.10); RED CELL DISTRIBUTION WIDTH 16.9 % (11.5-14.5)
[2017-08-12 06:35] LABS: WHITE BLOOD COUNT 13.7 10^3/ul (4.8-10.8)
[2017-08-12 06:58] LABS: ANION GAP 20 (8-16); BLOOD UREA NITROGEN 101 mg/dl (7-20); CALCIUM 9.2 mg/dl (8.4-10.2); CARBON DIOXIDE 24 mmol/L (21-31); CHLORIDE 94 mmol/L (97-110); CREATININE 5.61 mg/dl (0.61-1.24); GLUCOSE 119 mg/dl (70-220); POTASSIUM 4.4 mmol/L (3.5-5.1); SODIUM 134 mmol/L (135-144)
[2017-08-12] MEDS: ZINC SULFATE 220 MG CAP GTB (09:15)
[2017-08-12] MEDS: BALSAM PERU/CASTOR OIL 60 GM TUBE TOP ×2 (09:15→20:58)
[2017-08-12] MEDS: CEFTRIAXONE 1 GM/50 ML (PMX) 50 ML IVPB (14:00)
[2017-08-12] MEDS: DIPHENHYDRAMINE 25 MG CAP GTB (16:02)
[2017-08-12] MEDS: FAMOTIDINE 20 MG TAB PO (20:54)
[2017-08-12] MEDS: TAMSULOSIN (SR) 0.4 MG CAP PO (20:55)
[2017-08-12] MEDS: INSULIN GLARGINE [LANtus] 3 ML PEN SC (21:00)
[2017-08-13] MEDS: DEXTROSE 5%-0.45% NACL 1,000 ML IV (00:04)
[2017-08-13] MEDS: Insulin NOVOLOG SS MILD Algorithm (NPO/TPN/ENTERAL FEEDS) SC ×4 (00:12→19:27)
[2017-08-13] MEDS: DIPHENHYDRAMINE 25 MG CAP GTB ×2 (00:26→21:59)
[2017-08-13] MEDS: ALBUTEROL/IPRATROPIUM (NEB) 3 ML AMP HHN ×4 (02:13→19:43)
[2017-08-13 07:08] LABS: ANION GAP 22 (8-16); BLOOD UREA NITROGEN 117 mg/dl (7-20); CALCIUM 9.2 mg/dl (8.4-10.2); CARBON DIOXIDE 23 mmol/L (21-31); CHLORIDE 92 mmol/L (97-110); CREATININE 6.54 mg/dl (0.61-1.24); GLUCOSE 85 mg/dl (70-220); POTASSIUM 4.6 mmol/L (3.5-5.1); SODIUM 132 mmol/L (135-144)
[2017-08-13] MEDS: BALSAM PERU/CASTOR OIL 60 GM TUBE TOP ×2 (09:00→22:05)
[2017-08-13] MEDS: ZINC SULFATE 220 MG CAP GTB (09:00)
[2017-08-13] MEDS: HEPARIN 1000 UNITS/ML 10 ML INJ (13:03)
[2017-08-13] MEDS ORDERED: PROPOFOL 20 ML (13:48)
[2017-08-13] MEDS ORDERED: ESMOLOL 0 ML (13:49)
[2017-08-13] MEDS ORDERED: FENTAnyl 50 MCG/ML VIAL (13:49)
[2017-08-13] MEDS ORDERED: PHENYLephrine (100 MCG/ML) 5ML SYG (13:49)
[2017-08-13] MEDS ORDERED: MIDAZOLAM 1 MG/ML 2 ML INJ (13:49)
[2017-08-13] MEDS: CEFTRIAXONE 1 GM/50 ML (PMX) 50 ML IVPB (21:50)
[2017-08-13] MEDS: TAMSULOSIN (SR) 0.4 MG CAP PO (21:51)
[2017-08-13] MEDS: FAMOTIDINE 20 MG TAB PO (21:51)
[2017-08-13] MEDS: INSULIN GLARGINE [LANtus] 3 ML PEN SC (21:59)
[2017-08-14] MEDS: ALBUTEROL/IPRATROPIUM (NEB) 3 ML AMP HHN ×4 (01:36→19:29)
[2017-08-14 05:47] LABS: ADD MAN DIFF? NO
[2017-08-14 05:50] LABS: WHITE BLOOD COUNT 8.9 10^3/ul (4.8-10.8)
[2017-08-14 05:50] LABS: BASOPHIL # 0.1 10^3/ul (0.0-0.1); BASOPHILS % 1.1 % (0.0-2.0); EOSINOPHILS # 0.8 10^3/ul (0.0-0.5); EOSINOPHILS % 8.4 % (0.0-7.0); HEMATOCRIT 33.2 % (42.0-52.0); LYMPHOCYTES # 1.3 10^3/ul (0.8-2.9); LYMPHOCYTES % 14.9 % (15.0-51.0); MEAN CORPUSCULAR HEMOGLOBIN 30.6 pg (29.0-33.0); MEAN CORPUSCULAR HGB CONC 33.1 g/dl (32.0-37.0); MEAN CORPUSCULAR VOLUME 92.5 fl (82.0-101.0); MEAN PLATELET VOLUME 11.7 fl (7.4-10.4); MONOCYTES % 10.9 % (0.0-11.0); NEUTROPHIL # 5.7 10^3/ul (1.6-7.5); NEUTROPHILS % 64.4 % (39.0-77.0); PLATELET COUNT 346 10^3/UL (140-415); RED BLOOD COUNT 3.59 10^6/ul (4.70-6.10)
[2017-08-14] MEDS: Insulin NOVOLOG SS MILD Algorithm (NPO/TPN/ENTERAL FEEDS) SC ×5 (06:00→23:28)
[2017-08-14 06:13] LABS: ANION GAP 16 (8-16); BLOOD UREA NITROGEN 47 mg/dl (7-20); CALCIUM 9.2 mg/dl (8.4-10.2); CARBON DIOXIDE 28 mmol/L (21-31); CHLORIDE 97 mmol/L (97-110); CREATININE 3.61 mg/dl (0.61-1.24); GLUCOSE 162 mg/dl (70-220); SODIUM 137 mmol/L (135-144)
[2017-08-14] MEDS: ZINC SULFATE 220 MG CAP GTB (08:09)
[2017-08-14] MEDS: BALSAM PERU/CASTOR OIL 60 GM TUBE TOP ×2 (08:09→20:48)
[2017-08-14] MEDS: CEFTRIAXONE 1 GM/50 ML (PMX) 50 ML IVPB (14:07)
[2017-08-14] MEDS: hydrALAzine 20 MG INJ IV (18:32)
[2017-08-14] MEDS: FAMOTIDINE 20 MG TAB PO (20:47)
[2017-08-14] MEDS: TAMSULOSIN (SR) 0.4 MG CAP PO (20:47)
[2017-08-14] MEDS: INSULIN GLARGINE [LANtus] 3 ML PEN SC (20:50)
[2017-08-15] MEDS: ALBUTEROL/IPRATROPIUM (NEB) 3 ML AMP HHN ×4 (01:22→20:51)
[2017-08-15] MEDS: DIPHENHYDRAMINE 25 MG CAP GTB ×2 (01:37→20:20)
[2017-08-15] MEDS: Insulin NOVOLOG SS MILD Algorithm (NPO/TPN/ENTERAL FEEDS) SC ×4 (05:15→23:43)
[2017-08-15 06:15] LABS: ADD MAN DIFF? NO
[2017-08-15 06:16] LABS: BASOPHIL # 0.1 10^3/ul (0.0-0.1); BASOPHILS % 1.1 % (0.0-2.0); EOSINOPHILS # 1.3 10^3/ul (0.0-0.5); EOSINOPHILS % 12.4 % (0.0-7.0); HEMATOCRIT 33.4 % (42.0-52.0); HEMOGLOBIN 10.7 g/dl (14.0-18.0); LYMPHOCYTES # 2.4 10^3/ul (0.8-2.9); LYMPHOCYTES % 23.4 % (15.0-51.0); MEAN CORPUSCULAR HEMOGLOBIN 30.1 pg (29.0-33.0); MEAN CORPUSCULAR VOLUME 93.8 fl (82.0-101.0); MEAN PLATELET VOLUME 11.9 fl (7.4-10.4); MONOCYTE # 1.1 10^3/ul (0.3-0.9); MONOCYTES % 10.9 % (0.0-11.0); NEUTROPHIL # 5.4 10^3/ul (1.6-7.5); NEUTROPHILS % 51.9 % (39.0-77.0); PLATELET COUNT 322 10^3/UL (140-415); RED BLOOD COUNT 3.56 10^6/ul (4.70-6.10); RED CELL DISTRIBUTION WIDTH 17.2 % (11.5-14.5)
[2017-08-15 06:16] LABS: WHITE BLOOD COUNT 10.4 10^3/ul (4.8-10.8)
[2017-08-15 06:41] LABS: ANION GAP 19 (8-16); BLOOD UREA NITROGEN 70 mg/dl (7-20); CALCIUM 9.4 mg/dl (8.4-10.2); CARBON DIOXIDE 26 mmol/L (21-31); CHLORIDE 98 mmol/L (97-110); CREATININE 4.91 mg/dl (0.61-1.24); GLUCOSE 111 mg/dl (70-220); POTASSIUM 4.5 mmol/L (3.5-5.1); SODIUM 138 mmol/L (135-144)
[2017-08-15] MEDS: ZINC SULFATE 220 MG CAP GTB (08:20)
[2017-08-15] MEDS: BALSAM PERU/CASTOR OIL 60 GM TUBE TOP ×2 (08:20→20:20)
[2017-08-15] MEDS ORDERED: VITAMIN A & D 5 GM OINT PACKET TOP (11:01)
[2017-08-15] MEDS: CEFTRIAXONE 1 GM/50 ML (PMX) 50 ML IVPB (14:42)
[2017-08-15] MEDS: FAMOTIDINE 20 MG TAB PO (20:20)
[2017-08-15] MEDS: TAMSULOSIN (SR) 0.4 MG CAP PO (20:20)
[2017-08-15] MEDS: INSULIN GLARGINE [LANtus] 3 ML PEN SC (20:26)
[2017-08-16] MEDS: hydrALAzine 20 MG INJ IV (00:18)
[2017-08-16] MEDS: ALBUTEROL/IPRATROPIUM (NEB) 3 ML AMP HHN ×4 (01:50→20:00)
[2017-08-16] MEDS: DIPHENHYDRAMINE 25 MG CAP GTB (02:09)
[2017-08-16] MEDS: Insulin NOVOLOG SS MILD Algorithm (NPO/TPN/ENTERAL FEEDS) SC ×3 (05:50→17:42)
[2017-08-16 05:53] LABS: ADD MAN DIFF? NO
[2017-08-16 06:04] LABS: BASOPHIL # 0.1 10^3/ul (0.0-0.1); BASOPHILS % 0.9 % (0.0-2.0); EOSINOPHILS # 1.8 10^3/ul (0.0-0.5); HEMATOCRIT 31.5 % (42.0-52.0); HEMOGLOBIN 10.1 g/dl (14.0-18.0); LYMPHOCYTES # 2.4 10^3/ul (0.8-2.9); LYMPHOCYTES % 18.6 % (15.0-51.0); MEAN CORPUSCULAR HGB CONC 32.1 g/dl (32.0-37.0); MEAN CORPUSCULAR VOLUME 93.5 fl (82.0-101.0); MEAN PLATELET VOLUME 11.8 fl (7.4-10.4); MONOCYTE # 1.2 10^3/ul (0.3-0.9); NEUTROPHIL # 7.3 10^3/ul (1.6-7.5); NEUTROPHILS % 57.1 % (39.0-77.0); PLATELET COUNT 304 10^3/UL (140-415); RED BLOOD COUNT 3.37 10^6/ul (4.70-6.10); RED CELL DISTRIBUTION WIDTH 16.8 % (11.5-14.5)
[2017-08-16 06:04] LABS: WHITE BLOOD COUNT 12.8 10^3/ul (4.8-10.8)
[2017-08-16 06:39] LABS: ANION GAP 20 (8-16); BLOOD UREA NITROGEN 91 mg/dl (7-20); CALCIUM 9.2 mg/dl (8.4-10.2); CARBON DIOXIDE 25 mmol/L (21-31); CHLORIDE 97 mmol/L (97-110); CREATININE 5.56 mg/dl (0.61-1.24); GLUCOSE 128 mg/dl (70-220); POTASSIUM 4.5 mmol/L (3.5-5.1); SODIUM 137 mmol/L (135-144)
[2017-08-16] MEDS: ZINC SULFATE 220 MG CAP GTB (08:08)
[2017-08-16] MEDS: BALSAM PERU/CASTOR OIL 60 GM TUBE TOP ×2 (08:10→21:37)
[2017-08-16] MEDS: CEFTRIAXONE 1 GM/50 ML (PMX) 50 ML IVPB (14:57)
[2017-08-16] MEDS: INSULIN GLARGINE [LANtus] 3 ML PEN SC (21:36)
[2017-08-16] MEDS: HEPARIN 1000 UNITS/ML 10 ML INJ CATHETER (23:47)
[2017-08-17] MEDS: Insulin NOVOLOG SS MILD Algorithm (NPO/TPN/ENTERAL FEEDS) SC ×5 (00:08→23:31)
[2017-08-17] MEDS: TAMSULOSIN (SR) 0.4 MG CAP PO ×2 (00:10→20:51)
[2017-08-17] MEDS: FAMOTIDINE 20 MG TAB PO ×2 (00:11→20:51)
[2017-08-17] MEDS: DIPHENHYDRAMINE 25 MG CAP GTB ×2 (01:06→21:57)
[2017-08-17] MEDS: ALBUTEROL/IPRATROPIUM (NEB) 3 ML AMP HHN ×4 (01:12→19:53)
[2017-08-17 06:18] LABS: ADD MAN DIFF? NO
[2017-08-17 06:28] LABS: WHITE BLOOD COUNT 12.8 10^3/ul (4.8-10.8)
[2017-08-17 06:28] LABS: BASOPHIL # 0.1 10^3/ul (0.0-0.1); BASOPHILS % 1.1 % (0.0-2.0); EOSINOPHILS # 1.3 10^3/ul (0.0-0.5); EOSINOPHILS % 10.3 % (0.0-7.0); HEMATOCRIT 33.1 % (42.0-52.0); HEMOGLOBIN 10.8 g/dl (14.0-18.0); LYMPHOCYTES # 2.1 10^3/ul (0.8-2.9); LYMPHOCYTES % 16.3 % (15.0-51.0); MEAN CORPUSCULAR HEMOGLOBIN 30.3 pg (29.0-33.0); MEAN CORPUSCULAR HGB CONC 32.6 g/dl (32.0-37.0); MONOCYTE # 1.1 10^3/ul (0.3-0.9); MONOCYTES % 8.6 % (0.0-11.0); NEUTROPHIL # 8.1 10^3/ul (1.6-7.5); NEUTROPHILS % 63.4 % (39.0-77.0); PLATELET COUNT 280 10^3/UL (140-415); RED BLOOD COUNT 3.56 10^6/ul (4.70-6.10); RED CELL DISTRIBUTION WIDTH 16.9 % (11.5-14.5)
[2017-08-17 07:08] LABS: ANION GAP 16 (8-16); BLOOD UREA NITROGEN 44 mg/dl (7-20); CALCIUM 9.6 mg/dl (8.4-10.2); CARBON DIOXIDE 27 mmol/L (21-31); CHLORIDE 99 mmol/L (97-110); CREATININE 3.22 mg/dl (0.61-1.24); GLUCOSE 109 mg/dl (70-220); POTASSIUM 4.3 mmol/L (3.5-5.1); SODIUM 138 mmol/L (135-144)
[2017-08-17] MEDS: ZINC SULFATE 220 MG CAP GTB (08:45)
[2017-08-17] MEDS: BALSAM PERU/CASTOR OIL 60 GM TUBE TOP ×2 (08:47→20:54)
[2017-08-17] MEDS: CEFTRIAXONE 1 GM/50 ML (PMX) 50 ML IVPB (14:21)
[2017-08-17 17:58] LABS: INR 0.93; PROTIME 12.5 Sec (11.9-14.9)
[2017-08-17] MEDS: INSULIN GLARGINE [LANtus] 3 ML PEN SC (20:56)
[2017-08-18] MEDS: ALBUTEROL/IPRATROPIUM (NEB) 3 ML AMP HHN ×4 (01:04→19:44)
[2017-08-18] MEDS: Insulin NOVOLOG SS MILD Algorithm (NPO/TPN/ENTERAL FEEDS) SC ×3 (06:00→17:56)
[2017-08-18] MEDS: BALSAM PERU/CASTOR OIL 60 GM TUBE TOP ×2 (09:04→21:28)
[2017-08-18] MEDS: ZINC SULFATE 220 MG CAP GTB (09:09)
[2017-08-18 10:13] LABS: ADD MAN DIFF? NO
[2017-08-18 10:18] LABS: BASOPHILS % 0.8 % (0.0-2.0); EOSINOPHILS % 15.1 % (0.0-7.0); HEMATOCRIT 32.1 % (42.0-52.0); HEMOGLOBIN 10.5 g/dl (14.0-18.0); LYMPHOCYTES % 17.4 % (15.0-51.0); MEAN CORPUSCULAR HEMOGLOBIN 30.8 pg (29.0-33.0); MEAN CORPUSCULAR HGB CONC 32.7 g/dl (32.0-37.0); MEAN CORPUSCULAR VOLUME 94.1 fl (82.0-101.0); MEAN PLATELET VOLUME 11.2 fl (7.4-10.4); NEUTROPHILS % 57.3 % (39.0-77.0); PLATELET COUNT 292 10^3/UL (140-415); RED BLOOD COUNT 3.41 10^6/ul (4.70-6.10); RED CELL DISTRIBUTION WIDTH 16.8 % (11.5-14.5)
[2017-08-18 10:18] LABS: WHITE BLOOD COUNT 14.3 10^3/ul (4.8-10.8)
[2017-08-18 10:19] LABS: ABNORMAL IP MESSAGE 1; BASOPHIL # 0.1 10^3/ul (0.0-0.1); EOSINOPHILS # 2.2 10^3/ul (0.0-0.5); LYMPHOCYTES # 2.5 10^3/ul (0.8-2.9); MONOCYTE # 1.3 10^3/ul (0.3-0.9); NEUTROPHIL # 8.2 10^3/ul (1.6-7.5); POSITIVE DIFF @See below
[2017-08-18 10:39] LABS: ANION GAP 19 (8-16); BLOOD UREA NITROGEN 79 mg/dl (7-20); CALCIUM 9.2 mg/dl (8.4-10.2); CARBON DIOXIDE 25 mmol/L (21-31); CHLORIDE 96 mmol/L (97-110); CREATININE 4.95 mg/dl (0.61-1.24); GLUCOSE 92 mg/dl (70-220); POTASSIUM 4.3 mmol/L (3.5-5.1); SODIUM 136 mmol/L (135-144)
[2017-08-18] MEDS ORDERED: HEPARIN 1000 UNITS/ML 10 ML INJ CATHETER (11:30)
[2017-08-18] MEDS ORDERED: SODIUM CHLORIDE 0.9% 1L BAG IV (11:30)
[2017-08-18] MEDS: CEFTRIAXONE 1 GM/50 ML (PMX) 50 ML IVPB (14:50)
[2017-08-18] MEDS: FAMOTIDINE 20 MG TAB PO (21:28)
[2017-08-18] MEDS: TAMSULOSIN (SR) 0.4 MG CAP PO (21:28)
[2017-08-18] MEDS: INSULIN GLARGINE [LANtus] 3 ML PEN SC (21:33)
[2017-08-18] MEDS: DIPHENHYDRAMINE 25 MG CAP GTB (23:11)
[2017-08-19] MEDS: ALBUTEROL/IPRATROPIUM (NEB) 3 ML AMP HHN ×4 (02:00→20:15)
[2017-08-19] MEDS: ALBUMIN HUMAN 25% 50 ML IV (02:27)
[2017-08-19] MEDS: HEPARIN 1000 UNITS/ML 10 ML INJ CATHETER (03:25)
[2017-08-19] MEDS: Insulin NOVOLOG SS MILD Algorithm (NPO/TPN/ENTERAL FEEDS) SC ×5 (06:00→23:47)
[2017-08-19 06:05] LABS: ADD MAN DIFF? NO
[2017-08-19 06:13] LABS: BASOPHIL # 0.1 10^3/ul (0.0-0.1); BASOPHILS % 1.1 % (0.0-2.0); EOSINOPHILS # 1.5 10^3/ul (0.0-0.5); EOSINOPHILS % 15.4 % (0.0-7.0); HEMATOCRIT 31.1 % (42.0-52.0); HEMOGLOBIN 10.3 g/dl (14.0-18.0); LYMPHOCYTES # 1.5 10^3/ul (0.8-2.9); LYMPHOCYTES % 15.4 % (15.0-51.0); MEAN CORPUSCULAR HEMOGLOBIN 30.7 pg (29.0-33.0); MEAN CORPUSCULAR HGB CONC 33.1 g/dl (32.0-37.0); MEAN CORPUSCULAR VOLUME 92.8 fl (82.0-101.0); MEAN PLATELET VOLUME 11.6 fl (7.4-10.4); MONOCYTES % 10.5 % (0.0-11.0); NEUTROPHIL # 5.5 10^3/ul (1.6-7.5); NEUTROPHILS % 57.3 % (39.0-77.0); PLATELET COUNT 274 10^3/UL (140-415); RED BLOOD COUNT 3.35 10^6/ul (4.70-6.10); RED CELL DISTRIBUTION WIDTH 16.2 % (11.5-14.5)
[2017-08-19 06:13] LABS: WHITE BLOOD COUNT 9.6 10^3/ul (4.8-10.8)
[2017-08-19 06:36] LABS: ALANINE AMINOTRANSFERASE 88 IU/L (13-69); ALBUMIN/GLOBULIN RATIO 0.93; ALKALINE PHOSPHATASE 239 IU/L (42-121); ANION GAP 16 (8-16); ASPARTATE AMINO TRANSFERASE 66 IU/L (15-46); BLOOD UREA NITROGEN 25 mg/dl (7-20); CARBON DIOXIDE 28 mmol/L (21-31); CHLORIDE 100 mmol/L (97-110); CREATININE 2.09 mg/dl (0.61-1.24); GLUCOSE 156 mg/dl (70-220); POTASSIUM 3.6 mmol/L (3.5-5.1); SODIUM 140 mmol/L (135-144); TOTAL PROTEIN 8.3 g/dl (6.1-8.1)
[2017-08-19] MEDS: ZINC SULFATE 220 MG CAP GTB (09:01)
[2017-08-19] MEDS: BALSAM PERU/CASTOR OIL 60 GM TUBE TOP ×2 (09:02→21:41)
[2017-08-19] MEDS ORDERED: LIDOCAINE 1% (MDV) 20 ML INJ ×2 (13:27→13:33)
[2017-08-19] MEDS ORDERED: PROPOFOL 20 ML (13:32)
[2017-08-19] MEDS ORDERED: FENTAnyl 50 MCG/ML VIAL (13:32)
[2017-08-19] MEDS ORDERED: EPHEDrine SULFATE 50 MG/5 ML SYG (13:32)
[2017-08-19] MEDS ORDERED: HEPARIN 1000 UNITS/ML 10 ML INJ (13:33)
[2017-08-19] MEDS: hydrALAzine 20 MG INJ IV (15:22)
[2017-08-19] MEDS: CEFTRIAXONE 1 GM/50 ML (PMX) 50 ML IVPB (16:29)
[2017-08-19] MEDS: FLUCONAZOLE 100 MG TAB PO (16:29)
[2017-08-19] MEDS: TAMSULOSIN (SR) 0.4 MG CAP PO (21:40)
[2017-08-19] MEDS: FAMOTIDINE 20 MG TAB PO (21:40)
[2017-08-19] MEDS: INSULIN GLARGINE [LANtus] 3 ML PEN SC (21:45)
[2017-08-20] MEDS: ALBUTEROL/IPRATROPIUM (NEB) 3 ML AMP HHN ×4 (01:59→21:05)
[2017-08-20] MEDS: DIPHENHYDRAMINE 25 MG CAP GTB (02:14)
[2017-08-20] MEDS: Insulin NOVOLOG SS MILD Algorithm (NPO/TPN/ENTERAL FEEDS) SC ×3 (05:36→18:16)
[2017-08-20 06:27] LABS: ADD MAN DIFF? NO
[2017-08-20 06:30] LABS: BASOPHIL # 0.1 10^3/ul (0.0-0.1); BASOPHILS % 0.8 % (0.0-2.0); EOSINOPHILS # 1.4 10^3/ul (0.0-0.5); EOSINOPHILS % 9.7 % (0.0-7.0); HEMATOCRIT 30.6 % (42.0-52.0); HEMOGLOBIN 9.9 g/dl (14.0-18.0); LYMPHOCYTES # 2.6 10^3/ul (0.8-2.9); LYMPHOCYTES % 18.3 % (15.0-51.0); MEAN CORPUSCULAR HEMOGLOBIN 30.7 pg (29.0-33.0); MEAN CORPUSCULAR HGB CONC 32.4 g/dl (32.0-37.0); MEAN PLATELET VOLUME 11.5 fl (7.4-10.4); MONOCYTE # 1.4 10^3/ul (0.3-0.9); MONOCYTES % 9.5 % (0.0-11.0); NEUTROPHIL # 8.7 10^3/ul (1.6-7.5); NEUTROPHILS % 61.4 % (39.0-77.0); PLATELET COUNT 266 10^3/UL (140-415); RED BLOOD COUNT 3.22 10^6/ul (4.70-6.10); RED CELL DISTRIBUTION WIDTH 16.5 % (11.5-14.5)
[2017-08-20 06:30] LABS: WHITE BLOOD COUNT 14.3 10^3/ul (4.8-10.8)
[2017-08-20 07:09] LABS: ANION GAP 16 (8-16); BLOOD UREA NITROGEN 60 mg/dl (7-20); CALCIUM 9.2 mg/dl (8.4-10.2); CARBON DIOXIDE 26 mmol/L (21-31); CHLORIDE 100 mmol/L (97-110); CREATININE 3.92 mg/dl (0.61-1.24); GLUCOSE 158 mg/dl (70-220); POTASSIUM 4.1 mmol/L (3.5-5.1); SODIUM 138 mmol/L (135-144)
[2017-08-20] MEDS: ZINC SULFATE 220 MG CAP GTB (08:30)
[2017-08-20] MEDS: FLUCONAZOLE 100 MG TAB PO (08:31)
[2017-08-20] MEDS: BALSAM PERU/CASTOR OIL 60 GM TUBE TOP (08:31)
[2017-08-20] MEDS: CEFTRIAXONE 1 GM/50 ML (PMX) 50 ML IVPB (15:13)
[2017-08-20] MEDS ORDERED: SOD CHLORIDE 0.9% 1,000 ML IV (15:13)
[2017-08-20] MEDS ORDERED: ALBUMIN HUMAN 25% 50 ML IV (15:30)
[2017-08-20] MEDS ORDERED: MANNITOL 25% 50 ML IV (15:30)
[2017-08-21] MEDS: TAMSULOSIN (SR) 0.4 MG CAP PO ×2 (00:16→21:09)
[2017-08-21] MEDS: FAMOTIDINE 20 MG TAB PO ×2 (00:17→21:09)
[2017-08-21] MEDS: INSULIN GLARGINE [LANtus] 3 ML PEN SC ×2 (00:19→21:11)
[2017-08-21] MEDS: Insulin NOVOLOG SS MILD Algorithm (NPO/TPN/ENTERAL FEEDS) SC ×4 (00:20→18:22)
[2017-08-21] MEDS: BALSAM PERU/CASTOR OIL 60 GM TUBE TOP ×3 (00:20→21:10)
[2017-08-21] MEDS: ALBUTEROL/IPRATROPIUM (NEB) 3 ML AMP HHN ×4 (02:24→20:57)
[2017-08-21] MEDS: DIPHENHYDRAMINE 25 MG CAP GTB ×2 (02:35→21:09)
[2017-08-21] MEDS: ZINC SULFATE 220 MG CAP GTB (09:20)
[2017-08-21] MEDS: FLUCONAZOLE 100 MG TAB PO (09:23)
[2017-08-22] MEDS: Insulin NOVOLOG SS MILD Algorithm (NPO/TPN/ENTERAL FEEDS) SC ×4 (00:27→18:30)
[2017-08-22] MEDS: ALBUTEROL/IPRATROPIUM (NEB) 3 ML AMP HHN ×4 (01:06→19:14)
[2017-08-22] MEDS: ZINC SULFATE 220 MG CAP GTB (08:56)
[2017-08-22] MEDS: BALSAM PERU/CASTOR OIL 60 GM TUBE TOP ×2 (08:56→20:34)
[2017-08-22] MEDS: FLUCONAZOLE 100 MG TAB PO (08:56)
[2017-08-22] MEDS: DIPHENHYDRAMINE 25 MG CAP GTB ×2 (09:04→20:33)
[2017-08-22] MEDS: hydrALAzine 20 MG INJ IV (12:50)
[2017-08-22] MEDS: TAMSULOSIN (SR) 0.4 MG CAP PO (20:33)
[2017-08-22] MEDS: FAMOTIDINE 20 MG TAB PO (20:33)
[2017-08-22] MEDS: INSULIN GLARGINE [LANtus] 3 ML PEN SC (20:35)
[2017-08-23] MEDS: ALBUTEROL/IPRATROPIUM (NEB) 3 ML AMP HHN ×4 (02:00→22:25)
[2017-08-23] MEDS: DIPHENHYDRAMINE 25 MG CAP GTB ×3 (02:31→22:14)
[2017-08-23] MEDS: Insulin NOVOLOG SS MILD Algorithm (NPO/TPN/ENTERAL FEEDS) SC ×4 (05:53→18:00)
[2017-08-23 06:08] LABS: ADD MAN DIFF? NO
[2017-08-23 06:15] LABS: ABNORMAL IP MESSAGE 1; BASOPHIL # 0.1 10^3/ul (0.0-0.1); BASOPHILS % 0.7 % (0.0-2.0); EOSINOPHILS # 2.7 10^3/ul (0.0-0.5); EOSINOPHILS % 16.9 % (0.0-7.0); HEMATOCRIT 30.9 % (42.0-52.0); HEMOGLOBIN 10.4 g/dl (14.0-18.0); LYMPHOCYTES % 18.6 % (15.0-51.0); MEAN CORPUSCULAR HEMOGLOBIN 31.2 pg (29.0-33.0); MEAN CORPUSCULAR HGB CONC 33.7 g/dl (32.0-37.0); MEAN CORPUSCULAR VOLUME 92.8 fl (82.0-101.0); MEAN PLATELET VOLUME 11.6 fl (7.4-10.4); MONOCYTE # 1.7 10^3/ul (0.3-0.9); MONOCYTES % 10.3 % (0.0-11.0); NEUTROPHIL # 8.5 10^3/ul (1.6-7.5); NEUTROPHILS % 53.3 % (39.0-77.0); PLATELET COUNT 253 10^3/UL (140-415); POSITIVE DIFF @See below; RED BLOOD COUNT 3.33 10^6/ul (4.70-6.10); RED CELL DISTRIBUTION WIDTH 15.9 % (11.5-14.5)
[2017-08-23 07:00] LABS: ALANINE AMINOTRANSFERASE 65 IU/L (13-69); ALBUMIN 4.1 g/dl (3.3-4.9); ALBUMIN/GLOBULIN RATIO 0.91; ALKALINE PHOSPHATASE 222 IU/L (42-121); ANION GAP 22 (8-16); ASPARTATE AMINO TRANSFERASE 45 IU/L (15-46); BLOOD UREA NITROGEN 102 mg/dl (7-20); CALCIUM 9.6 mg/dl (8.4-10.2); CARBON DIOXIDE 24 mmol/L (21-31); CHLORIDE 96 mmol/L (97-110); CREATININE 5.62 mg/dl (0.61-1.24); GLUCOSE 100 mg/dl (70-220); SODIUM 138 mmol/L (135-144); TOTAL PROTEIN 8.6 g/dl (6.1-8.1)
[2017-08-23] MEDS: FLUCONAZOLE 100 MG TAB PO (08:50)
[2017-08-23] MEDS: ZINC SULFATE 220 MG CAP GTB (08:50)
[2017-08-23] MEDS: BALSAM PERU/CASTOR OIL 60 GM TUBE TOP ×2 (09:00→22:17)
[2017-08-23] MEDS: HEPARIN 1000 UNITS/ML 10 ML INJ CATHETER (21:57)
[2017-08-23] MEDS: FAMOTIDINE 20 MG TAB PO (22:16)
[2017-08-23] MEDS: TAMSULOSIN (SR) 0.4 MG CAP PO (22:17)
[2017-08-23] MEDS: INSULIN GLARGINE [LANtus] 3 ML PEN SC (22:27)
== END 2017-08-23 23:25 | DRG 314 ==
LOC: MS2 08-03 22:45 → E/R 12:15 → TEL 07-30 08:36 → MS1 08-01 14:15 → TEL 17:25 → ICU 07-28 22:28
PROC: 5A1D70Z Performance of Urinary Filtration, Intermittent, Less than 6 Hours Per Day (ICD-10-PCS; 2017-07-29)
PROC: 05PYX3Z Removal of Infusion Device from Upper Vein, External Approach (ICD-10-PCS; 2017-08-10)
PROC: 05HM33Z Insertion of Infusion Device into Right Internal Jugular Vein, Percutaneous Approach (ICD-10-PCS; principal; 2017-08-13)
PROC: 02HV33Z Insertion of Infusion Device into Superior Vena Cava, Percutaneous Approach (ICD-10-PCS; 2017-08-13)
PROC: 0JH63XZ Insertion of Tunneled Vascular Access Device into Chest Subcutaneous Tissue and Fascia, Percutaneous Approach (ICD-10-PCS; 2017-08-19)
DX: T82.7XXA Infection and inflammatory reaction due to other cardiac and vascular devices, implants and grafts, initial encounter (principal); A41.1 Sepsis due to other specified staphylococcus; N18.6 End stage renal disease; R65.21 Severe sepsis with septic shock; G93.41 Metabolic encephalopathy; N17.9 Acute kidney failure, unspecified; I13.2 Hypertensive heart and chronic kidney disease with heart failure and with stage 5 chronic kidney disease, or end stage renal disease; G93.49 Other encephalopathy; L89.153 Pressure ulcer of sacral region, stage 3; R13.10 Dysphagia, unspecified; N39.0 Urinary tract infection, site not specified; I50.30 Unspecified diastolic (congestive) heart failure; E44.0 Moderate protein-calorie malnutrition; B37.49 Other urogenital candidiasis; I69.954 Hemiplegia and hemiparesis following unspecified cerebrovascular disease affecting left non-dominant side; E87.1 Hypo-osmolality and hyponatremia; E87.2 Acidosis; I48.0 Paroxysmal atrial fibrillation; E11.22 Type 2 diabetes mellitus with diabetic chronic kidney disease; B96.20 Unspecified Escherichia coli [E. coli] as the cause of diseases classified elsewhere; E78.5 Hyperlipidemia, unspecified; E86.0 Dehydration; I25.10 Atherosclerotic heart disease of native coronary artery without angina pectoris; J20.9 Acute bronchitis, unspecified; Z93.1 Gastrostomy status; Z79.4 Long term (current) use of insulin; Z99.2 Dependence on renal dialysis
CPT/HCPCS: 36415; 36556; 36558; 36590; 36600; 71045; 76705; 76942; 80048; 80053; 80202; 81001; 82803; 82962; 83036; 83605; 83735; 84443; 84484; 85025; 85610; 85730; 86704; 86706; 87040; 87086; 87340; 90935; 93005; 94640; 94664; 96365; 96372; 96375; 96376; 99291-25

== ENCOUNTER 2017-08-31 13:43 | Inpatient (IN) | payer OTHER ==
[~2017-08-31 13:43] MED LIST: ETOMIDATE 20 MG INJ; SUCCINYLCHOLINE CHLORIDE 100 MG/5 ML SYG IV
[2017-08-31] MEDS: CEFEPIME 2GM/50 ML (PMX) 50 ML IVPB (14:33)
[2017-08-31] MEDS: SOD CHLORIDE 0.9% 1,000 ML IV ×2 (14:38→19:29)
[2017-08-31] MEDS: ALBUTEROL 0.5% (NEB) 2.5 MG/0.5 ML AMP INH (14:46)
[2017-08-31 15:42] LABS: ABNORMAL IP MESSAGE 1; HEMATOCRIT 31.4 % (42.0-52.0); HEMOGLOBIN 10.5 g/dl (14.0-18.0); MEAN CORPUSCULAR HEMOGLOBIN 31.2 pg (29.0-33.0); MEAN CORPUSCULAR HGB CONC 33.4 g/dl (32.0-37.0); MEAN CORPUSCULAR VOLUME 93.2 fl (82.0-101.0); MEAN PLATELET VOLUME 11.5 fl (7.4-10.4); PLATELET COUNT 274 10^3/UL (140-415); POSITIVE DIFF @See below; RED BLOOD COUNT 3.37 10^6/ul (4.70-6.10); RED CELL DISTRIBUTION WIDTH 15.6 % (11.5-14.5)
[2017-08-31 15:42] LABS: WHITE BLOOD COUNT 9.5 10^3/ul (4.8-10.8)
[2017-08-31 15:52] LABS: ADD MAN DIFF? YES
[2017-08-31 15:54] LABS: INR 0.91; PROTIME 12.3 Sec (11.9-14.9)
[2017-08-31 15:55] LABS: PARTIAL THROMBOPLASTIN TIME 40.9 Sec (25.0-35.0)
[2017-08-31 15:58] LABS: ALANINE AMINOTRANSFERASE 87 IU/L (13-69); ALBUMIN 3.8 g/dl (3.3-4.9); ALBUMIN/GLOBULIN RATIO 0.88; ALKALINE PHOSPHATASE 241 IU/L (42-121); ANION GAP 17 (8-16); ASPARTATE AMINO TRANSFERASE 74 IU/L (15-46); BLOOD UREA NITROGEN 66 mg/dl (7-20); CALCIUM 9.3 mg/dl (8.4-10.2); CARBON DIOXIDE 27 mmol/L (21-31); CHLORIDE 95 mmol/L (97-110); CREATININE 3.87 mg/dl (0.61-1.24); GLUCOSE 166 mg/dl (70-220); POTASSIUM 4.7 mmol/L (3.5-5.1); SODIUM 134 mmol/L (135-144); TOTAL PROTEIN 8.1 g/dl (6.1-8.1)
[2017-08-31 16:02] LABS: LACTIC ACID 2.1 mmol/L (0.5-2.0)
[2017-08-31 16:09] LABS: TROPONIN-I 0.043 ng/ml (0.00-0.12)
[2017-08-31] MEDS ORDERED: PROPOFOL 100 ML (16:30)
[2017-08-31] MEDS: VANCOMYCIN 1 GM (PMX) 250 ML IVPB (16:51)
[2017-08-31 16:54] LABS: ANISOCYTOSIS 1+ (0-0); BAND NEUTROPHILS #M 2.7 10^3/ul (0.0-0.6); BAND NEUTROPHILS % (M) 29 % (0-4); BASOPHIL #M 0.1 10^3/ul (0.0-0.0); BASOPHILS % (M) 2 % (0-2); EOSINOPHILS % (M) 3 % (0-7); GIANT THROMBO% (M) 4 % (0-0); LYMPHOCYTES #M 0.5 10^3/ul (0.8-2.9); LYMPHOCYTES % (M) 6 % (15-51); METAMYELOCYTES #M 0.3 10^3/ul (0.0-0.0); METAMYELOCYTES %M 4 % (0-0); MONOCYTE #M 0.9 10^3/ul (0.3-0.9); MONOCYTES % (M) 10 % (0-11); MYELOCYTES % (M) 1 % (0-0); SEG NEUT #M 4.5 10^3/ul (1.6-7.5); SEGMENTED NEUTROPHILS (M) % 45 % (39-77); SMUDGE%M 2 % (0-0)
[2017-08-31] MEDS: MIDAZOLAM (DRIP) 50 mg/50 mL 50 ML IV (16:55)
[2017-08-31] MEDS: SODIUM CHLORIDE 0.9% 1L BAG IV* (16:56)
[2017-08-31 17:29] LABS: AADO2 Arterial 531.3 mmHg (7.0-24.0); Allen Test ACCEPTAB; Arterial Base Excess -3.5 mmol/L (-3.0-3); Arterial Blood Gas Oxygen Sat 98.4 mmHG (95.0-98.0); Arterial COHb 0.3 % (0.0-3.0); Arterial Fraction of Oxyhgb 97.9 % (93.0-99.0); Arterial HCO3 21.6 mmol/L (22.0-26.0); Arterial MetHb 0.2 % (0.0-1.5); Arterial Total Hemglobin 10.2 g/dl (12.0-18.0); Arterial pCO2 38.8 mmhg (35-45); MODE VENT - AC; Site Right Brachial
[2017-08-31 17:32] LABS: B-TYPE NATRIURETIC PEPTIDE 29200 PG/ML (0-125)
[2017-08-31] MEDS: PROPOFOL 100 ML IV (17:35)
[2017-08-31] MEDS: FENTAnyl (DRIP) 1000 mcg/100mL 100 ML IV (18:50)
[2017-08-31] MEDS ORDERED: ONDANSETRON 4 MG INJ IV (19:00)
[2017-08-31] MEDS ORDERED: ACETAMINOPHEN 325 MG TAB PO (19:00)
[2017-08-31] MEDS: DOPamine-D5W 1.6 MG/ML 250 ML IV (19:23)
[2017-08-31] MEDS ORDERED: VANCOMYCIN IV PER PHARMACY XX (21:30)
[2017-08-31] MEDS: BISACODYL 10 MG SUPP PR (21:30)
[2017-08-31] MEDS ORDERED: ACETAMINOPHEN 325 MG TAB GTB (21:30)
[2017-08-31] MEDS ORDERED: PIPER-TAZO 2.25 GM (PMX) 50 ML IVPB (22:00)
[2017-08-31 22:52] LABS: LACTIC ACID 3.6 mmol/L (0.5-2.0)
[2017-08-31] MEDS ORDERED: GLUCOSE GEL 15 GRAM TUBE PO ×2 (23:00)
[2017-08-31] MEDS ORDERED: GLUCOSE GEL 15 GRAM TUBE BUCCAL (23:00)
[2017-08-31] MEDS ORDERED: GLUCAGON 1 MG INJ IM (23:00)
[2017-08-31] MEDS ORDERED: DEXTROSE 50% 50 ML SYRINGE IV (23:00)
[2017-08-31] MEDS: NORepinephrine 32 MG in DEXTROSE 5% 218 ML IV (23:37)
[2017-08-31] MEDS: PIPER-TAZO 2.25 GM (PMX) 50 ML IVPB (23:51)
[2017-09-01 00:28] LABS: LACTIC ACID 3.8 mmol/L (0.5-2.0)
[2017-09-01] MEDS: DOPamine-D5W 1.6 MG/ML 250 ML IV ×2 (01:06→14:30)
[2017-09-01] MEDS: ALBUTEROL/IPRATROPIUM (NEB) 3 ML AMP HHN (05:16)
[2017-09-01] MEDS: LANSOPRAZOLE 30 MG CAP GTB ×2 (06:01→18:00)
[2017-09-01] MEDS: PIPER-TAZO 2.25 GM (PMX) 50 ML IVPB ×2 (06:01→14:25)
[2017-09-01 06:21] LABS: ABNORMAL IP MESSAGE 1; HEMATOCRIT 31.7 % (42.0-52.0); HEMOGLOBIN 10.1 g/dl (14.0-18.0); MEAN CORPUSCULAR HEMOGLOBIN 31.1 pg (29.0-33.0); MEAN CORPUSCULAR HGB CONC 31.9 g/dl (32.0-37.0); MEAN CORPUSCULAR VOLUME 97.5 fl (82.0-101.0); MEAN PLATELET VOLUME 11.5 fl (7.4-10.4); NUCLEATED RED BLOOD CELLS% 0.5 /100WBC (0.0-0.0); PLATELET COUNT 190 10^3/UL (140-415); POSITIVE DIFF @See below; RED BLOOD COUNT 3.25 10^6/ul (4.70-6.10); RED CELL DISTRIBUTION WIDTH 15.9 % (11.5-14.5)
[2017-09-01 06:21] LABS: WHITE BLOOD COUNT 8.3 10^3/ul (4.8-10.8)
[2017-09-01 06:27] LABS: ADD MAN DIFF? YES
[2017-09-01] MEDS: MIDAZOLAM (DRIP) 50 mg/50 mL 50 ML IV (06:28)
[2017-09-01 06:51] LABS: ANION GAP 19 (8-16); BLOOD UREA NITROGEN 71 mg/dl (7-20); CALCIUM 8.2 mg/dl (8.4-10.2); CARBON DIOXIDE 17 mmol/L (21-31); CHLORIDE 104 mmol/L (97-110); CREATININE 3.88 mg/dl (0.61-1.24); GLUCOSE 86 mg/dl (70-220); SODIUM 135 mmol/L (135-144)
[2017-09-01 07:04] LABS: ANISOCYTOSIS 1+ (0-0); BAND NEUTROPHILS #M 5.2 10^3/ul (0.0-0.6); BAND NEUTROPHILS % (M) 63 % (0-4); BASOPHILS % (M) 1 % (0-2); EOSINOPHILS % (M) 5 % (0-7); GIANT THROMBO% (M) 1 % (0-0); LYMPHOCYTES #M 0.5 10^3/ul (0.8-2.9); LYMPHOCYTES % (M) 7 % (15-51); METAMYELOCYTES #M 0.4 10^3/ul (0.0-0.0); METAMYELOCYTES %M 5 % (0-0); MONOCYTE #M 0.3 10^3/ul (0.3-0.9); MONOCYTES % (M) 4 % (0-11); MYELOCYTES % (M) 1 % (0-0); PLATELET ESTIMATE NORMAL; POLYCHROMASIA 1+ (0-0); SEG NEUT #M 1.6 10^3/ul (1.6-7.5); SEGMENTED NEUTROPHILS (M) % 14 % (39-77); SMUDGE%M 10 % (0-0)
[2017-09-01] MEDS: INSULIN ASPART [NOVOLOG] 3 ML PEN SC ×3 (07:35→17:15)
[2017-09-01 08:14] LABS: AADO2 Arterial 437.6 mmHg (7.0-24.0); Allen Test ACCEPTAB; Arterial Base Excess -6.9 mmol/L (-3.0-3); Arterial Blood Gas Oxygen Sat 96.1 mmHG (95.0-98.0); Arterial COHb 0.3 % (0.0-3.0); Arterial Fraction of Oxyhgb 95.4 % (93.0-99.0); Arterial MetHb 0.4 % (0.0-1.5); Arterial pCO2 39.6 mmhg (35-45); MODE VENT - AC; Site Right Radial
[2017-09-01] MEDS ORDERED: PHENYLephrine 40 MG in DEXTROSE 5% 496 ML IV (08:30)
[2017-09-01] MEDS: ZINC SULFATE 220 MG CAP GTB (08:54)
[2017-09-01] MEDS: FERROUS SULFATE 60 MG/ML 5ML CUP GTB (08:54)
[2017-09-01] MEDS: ASCORBIC ACID 500 MG TAB GTB (08:54)
[2017-09-01] MEDS: MULTIVIT/CA CARB/B CMPLX/FA TAB GTB (08:54)
[2017-09-01] MEDS: PHENYLephrine 20MG IN 250 ML 250 ML IV ×2 (08:59→11:31)
[2017-09-01] MEDS: ALBUMIN HUMAN 25% 50 ML IV (11:34)
[2017-09-01] MEDS: NA BICARBONATE 8.4% 50 ML SYG IV (11:35)
[2017-09-01] MEDS: DEXTROSE 50% 50 ML SYRINGE IV (12:17)
[2017-09-01] MEDS: PHENYLephrine 80 MG in DEXTROSE 5% 492 ML IV ×2 (12:39→17:34)
[2017-09-01] MEDS: SOD CHLORIDE 0.9% 250 ML IV (13:08)
[2017-09-01] MEDS: VASOPRESSIN 60 UNIT in DEXTROSE 5% 57 ML IV (13:12)
[2017-09-01] MEDS: SOD CHLORIDE 0.9% 500 ML IV (14:04)
[2017-09-01 14:06] LABS: Allen Test ACCEPTAB; Arterial Blood Gas Oxygen Sat 93.8 mmHG (95.0-98.0); Arterial COHb 0.3 % (0.0-3.0); Arterial Fraction of Oxyhgb 93.2 % (93.0-99.0); Arterial MetHb 0.3 % (0.0-1.5); Arterial Total Hemglobin 9.2 g/dl (12.0-18.0); Arterial pCO2 38.8 mmhg (35-45); MODE VENT - AC; Site Right Radial
[2017-09-01] MEDS: ALBUTEROL HFA 8 GM INHALER INH ×2 (14:07→19:36)
[2017-09-01] MEDS: IPRATROPIUM (HFA) 12.9 GM INHALER INH ×2 (14:07→19:36)
[2017-09-01 14:21] LABS: AADO2 Arterial 162.1 mmHg (7.0-24.0)
[2017-09-01] MEDS: EPINEPHrine 4 MG in SOD CHLORIDE 0.9% 246 ML IV (16:08)
[2017-09-01] MEDS: SODIUM BICARBONATE (IV ADD) 150 MEQ in DEXTROSE 5% 850 ML IV (16:57)
[2017-09-01] MEDS ORDERED: PHENYLephrine 20MG IN 250 ML 250 ML IV (17:24)
[2017-09-01 18:09] LABS: CREATINE KINASE 153 IU/L (23-200)
[2017-09-01] MEDS: NORepinephrine 32 MG in DEXTROSE 5% 218 ML IV (18:12)
[2017-09-01 18:22] LABS: CK INDEX 3.7; CK-MB 5.67 ng/ml (0.0-2.4); TROPONIN-I 0.053 ng/ml (0.00-0.12)
[2017-09-01 18:35] LABS: ANION GAP 21 (8-16); BLOOD UREA NITROGEN 65 mg/dl (7-20); CALCIUM 6.8 mg/dl (8.4-10.2); CARBON DIOXIDE 11 mmol/L (21-31); CHLORIDE 105 mmol/L (97-110); CREATININE 3.73 mg/dl (0.61-1.24); GLUCOSE 189 mg/dl (70-220); SODIUM 132 mmol/L (135-144)
[2017-09-01] MEDS ORDERED: MAGNESIUM HYDROXIDE 30ML CUP GTB (21:00)
[2017-09-01] MEDS ORDERED: INSULIN GLARGINE [LANtus] 3 ML PEN SC (21:00)
== END 2017-09-01 21:00 | disposition expired | DRG 871 ==
LOC: E/R 13:43 → ICU 19:00
PROC: 0BH17EZ Insertion of Endotracheal Airway into Trachea, Via Natural or Artificial Opening (ICD-10-PCS; principal; 2017-08-31)
PROC: 5A1935Z Respiratory Ventilation, Less than 24 Consecutive Hours (ICD-10-PCS; 2017-08-31)
DX: A41.9 Sepsis, unspecified organism (principal); R65.21 Severe sepsis with septic shock; J96.00 Acute respiratory failure, unspecified whether with hypoxia or hypercapnia; J69.0 Pneumonitis due to inhalation of food and vomit; L89.152 Pressure ulcer of sacral region, stage 2; N18.6 End stage renal disease; I12.0 Hypertensive chronic kidney disease with stage 5 chronic kidney disease or end stage renal disease; E11.9 Type 2 diabetes mellitus without complications; H91.90 Unspecified hearing loss, unspecified ear; I69.991 Dysphagia following unspecified cerebrovascular disease; R13.10 Dysphagia, unspecified; Z99.2 Dependence on renal dialysis; Z74.01 Bed confinement status
CPT/HCPCS: 31500; 36600; 71045; 80048; 80053; 82550; 82553; 82803; 82962; 83605; 83880; 84145; 84484; 85025; 85610; 85730; 87040; 87081; 87400; 93005; 93306; 94002; 94003; 94640; 94644; 94660; 94770; 96374; 96375; 99291-25